=== PATIENT | female | born 1960 | race Caucasian/White ===

== ENCOUNTER 2021-04-21 11:37 | Day surgery (SDC) | payer MEDICARE, OTHER, MEDICAID, SELFPAY ==
[2021-04-21] VITALS (11 sets, daily range): BP systolic 149–177; BP diastolic 67–90; PULSE 72–81; RESP 15–16; TEMP 36.2–36.3; O2SAT 93–99; BMI 39.0
--- NOTE | 2021-04-21 12:22 | US_ITS ---
WS: [id number] RIGHT UPPER QUADRANT ULTRASOUND HISTORY: RUQ Pain COMPARISON: 07/27/2010 Liver: 20.9 cm in length. Markedly enlarged liver with severe hepatic steatosis. The entire liver is not well evaluated. Bile ducts are not visualized. Gallbladder: Minimally distended with numerous small stones. Very limited evaluation due to body habi tus. CBD: 0.5 cm Pancreas: Poorly visualized. Right kidney: 11.1 cm in length. Poorly visualized kidney. Aorta and IVC: Not well seen. No ascites. US/US gall bladder [id number] IMPRESSION: 1. Extremely limited evaluation of the RIGHT upper quadrant. 2. Cholelithiasis without evidence for acute cholecystitis or duct obstruction . 3. Severe hepatomegaly and hepatic steatosis.
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
[2021-04-21 14:23] LABS: Add Urine Microscopic? NO; Charge for UA Resulting for Rev
[2021-04-21 14:26] LABS: Urine Appearance Clear (CLEAR); Urine Color Yellow (Yellow); pH Urine 7 (5-7)
[2021-04-21 14:27] LABS: Bilirubin Urine Neg (Negative); Blood Urine Neg (Negative); Glucose Urine UA Norm (Normal); Ketones Urine Negative (Negative); Leukocyte Esterase Urine Negative (Negative); Nitrate Urine Negative (Negative); Protein Urine Neg (Negative); Specific Gravity, Urine 1.005 (1.005-1.030); Urobilinogen Urine 4 mg/dL (Negative)
[2021-04-21 15:06] LABS: Basophils # 0.1 10^3/uL (0.0-0.1); Basophils % 0.5 %; Eosinophils % 0.3 %; Hematocrit 45.9 % (37.0-47.0); Hemoglobin 15.4 g/dL (11.5-15.3); Lymphocytes # 1.9 10^3/uL (0.8-4.8); Lymphocytes % 14.3 %; Mean Corpuscular HGB Conc 33.6 g/dL (30.0-36.0); Mean Corpuscular Hemoglobin 28.9 pg (28.0-34.0); Mean Corpuscular Volume 86.1 fL (81-99); Mean Platelet Volume 10.7 fL (7.4-10.4); Monocytes # 0.7 10^3/uL (0.2-0.9); Monocytes % 5.2 %; Neutrophils # 10.28 10^3/uL (1.8-7.7); Neutrophils % 79.3 %; Nucleated Red Blood Cells % 0 %; Platelet Count 330 10^3/cmm (130-400); Red Blood Count 5.33 10^6/uL (4.1-5.3); Red Cell Distribution Width 13.3 % (12.1-15.1)
[2021-04-21 15:35] LABS: Alanine Aminotransferase 395 U/L (0-33); Albumin Level 4.3 g/dL (3.5-5.2); Alkaline Phosphatase 157 IU/L (35-105); Anion Gap 15.9 (5-19); Aspartate Amino Transferase 564 U/L (0-32); Blood Urea Nitrogen 11 mg/dL (6-20); Calcium 8.6 mg/dL (8.5-10.5); Carbon Dioxide 25 mmol/L (22-29); Chloride 103 mmol/L (98-107); Globulin 2.8 g/dL (1.3-4.6); Glomerular Filtration Rate 102.3 mL/min (90-130); Glucose 105 mg/dL (65-115); Lipase 33 U/L (13-60); Osmolality Calculated 290 mOsm/kg (285-295); Potassium 3.9 mmol/L (3.5-5.1); Sodium 140 mmol/L (136-145); Total Bilirubin 2.3 mg/dL (0.15-1.2); Total Protein 7.1 g/dL (6.6-8.7)
--- NOTE | 2021-04-21 15:44 | MRR_ITS ---
PROCEDURE INFORMATION: Exam: MR Abdomen Without Contrast, MRCP Exam date and time: 04/21/2021 4:27 PM Age: 61 years old Clinical indication: Abdominal pain; Localized; Right upper quadrant (ruq); Patient HX: Ruq pain since this morning with vomiting; Additional info: Ruq pain; Elevated lfts/elevated bili; Limited US study TECHNIQUE: Imaging protocol: MR of the abdomen without contrast. Exam focused on the bile ducts and pancreatic ducts. 3D MRCP images were acquired and processed without radiologist supervision. Total images: 215 COMPARISON: US gall bladder [id number] 04/21/2021 1:12 PM FINDINGS: Mediastinum: Hollow viscus within the field of view unremarkable other than a moderate size hiatal hernia. Liver: No visible hepatic mass or cystic structure. Hepatomegaly. Gallbladder and bile ducts: No visible intra or extrahepatic biliary ectasia. Common bile duct measures within normal limits at 5 mm. No visible choledocholithiasis. Cholelithiasis. No gallbladder wall thickening or pericholecystic fluid. Pancreas: Pancreas unremarkable. No visible pancreatic ductal ectasia. Spleen: Spleen unremarkable. Adrenals: Adrenal glands unremarkable. Kidneys and ureters: Simple cortical cyst equator left kidney measuring 36 mm. No follow-up recommended. Tiny cortical cyst equator right kidney measuring approximately 1 cm. No follow-up recommended. Intraperitoneal space: No fluid collection. MR/MR MRCP [id number] IMPRESSION: 1. Cholelithiasis. 2. No visible intra or extrahepatic biliary ectasia. 3. No visible choledocholithiasis. COMMENTS: Consistent with the [employer]'s Incidental Findings Committee white paper (J Am Cara Radiol 2018): Any incidental renal lesion less than 1 cm or classified as too small to characterize, or any incidental cystic renal lesion characterized as simple-appearing, is likely benign. No follow-up imaging is recommended for these lesions per consensus recommendations based on imaging criteria.
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
[2021-04-21] MEDS: metroNIDAZOLE IV 500 MG/100 ML PREMIX 100 MG IV (19:40)
[2021-04-21 20:42] LABS: Hepatitis A Antibody IgM Non-Reactive (Nonreactive); Hepatitis B Core IgM Non-Reactive (Nonreactive); Hepatitis B Surface Antigen Non-Reactive (Nonreactive); Hepatitis C Virus Antibody Non-Reactive (Nonreactive)
--- NOTE | 2021-04-21 20:47 | PM.OP ---
Operative Report Date of procedure: April 21, 2021 Pre-op Diagnosis: Acute calculus cholecystitis. Post-op diagnosis: same Post-op Diagnosis: With chronic inflammatory changes. Procedure Done: Laparoscopic cholecystectomy. Specimens removed/disposition: Gallbladder. Surgeon: Clyde Koo Anesthesia: General Estimated blood loss (mL): 25 Complications: None. Condition: stable Disposition: PACU Procedure: The patient was brought to the Operating Room and was placed in a supine position on the Operating Room table. General endotracheal anesthesia was induced. The abdomen was prepped and draped in a sterile fashion. A small vertical incision was carried out in the inferior aspect of the umbilicus. Blunt dissection was carried out down to the fascia, which was grasped with a Lisandro clamp. A stay suture of 0 Vicryl was placed on either side of the midline and the midline fascia was incised. The underlying peritoneum was opened bluntly and the Dinah port was placed directly into the peritoneal cavity and was held in place with the inflatable balloon. The peritoneal cavity was insufflated with carbon dioxide. The laparoscope was used to inspect the abdominal cavity. The patient had some light omental adhesions around the umbilicus which were eventually taken down. No other gross abnormalities were initially noted. A 5 millimeter port was placed in the epigastrium under direct vision. Two 5-millimeter ports were placed on the right side of the abdomen under direct vision. The gallbladder was grasped and was elevated. The patient's liver was large. She had some adhesions along the fundus and infundibular region of the gallbladder which were taken down using blunt dissection with some cautery to maintain hemostasis. She had rather extensive changes of chronic inflammation in the area of the infundibulum. Blunt dissection and hydrodissection were carried out in the infundibular region of the gallbladder and the cystic duct and cystic artery were eventually identified. Due to the chronic inflammation, however, even the edge of the gallbladder and its posterior border was difficult to visualize and dissection ended up making a small hole in the gallbladder. Some small stones were suctioned from the small hole throughout the procedure. The gallbladder was partially removed from the liver bed using cautery and the spatula to confirm the anatomy before the cystic duct and artery were clipped and divided. The gallbladder was then removed from the liver bed using cautery and the spatula. After the gallbladder had been removed from the liver bed, the laparoscope was moved to the epigastric port and the gallbladder was removed from the peritoneal cavity through the umbilical port site after being placed in a laparoscopic bag. The stay sutures of Vicryl were tied to each other at the umbilicus. Some additional [id number] sutures of 0 Vicryl were placed, closing the defect so that it was airtight. The perihepatic spaces were irrigated with saline and the liver bed was reinspected. No ongoing problems were seen. The remaining ports were removed from the abdominal wall and the pneumoperitoneum was evacuated. All skin incisions were closed using inverted interrupted sutures of 4-0 Vicryl. Benzoin and Steri-Strips were placed over the incisions and Band-Aids followed. The patient was taken to the Recovery Area in stable condition postoperatively.
--- NOTE | 2021-04-22 03:03 | PC.NURSE ---
PT LEAVING ER VIA STRETCHER WITH JAYCEE FROM SURGERY. PT AND BEING TAKEN TO SURGERY.
== END 2021-04-21 22:27 | disposition home or self-care (01) ==
LOC: ER 17:03 → OPS 18:58 → MEDSURG 21:28
PROVIDERS: Physician Assistant; Emergency Provider Nurse Practitioner Family; PCP Physician Assistant Medical; Visit Provider Surgery
PROC: 0FT44ZZ Resection of Gallbladder, Percutaneous Endoscopic Approach (ICD-10-PCS; CPT 47562; principal; 2021-04-21 20:00)
DX: K80.10 Calculus of gallbladder with chronic cholecystitis without obstruction (principal); E66.01 Morbid (severe) obesity due to excess calories; Z68.39 Body mass index [BMI] 39.0-39.9, adult; Z98.84 Bariatric surgery status; K76.0 Fatty (change of) liver, not elsewhere classified
CPT/HCPCS: 47562; 74181; 76705; 80053; 80074; 81003; 83690; 85025; 88304; 96365; 96367; J0330; J0690; J1100; J2405; J2704; J3010; J3490; S0030